=== PATIENT | female | born 1965 | race Caucasian/White ===

== ENCOUNTER 2018-07-23 23:14 | Observation (INO) ==
[2018-07-24] MEDS ORDERED: Naloxone 0.4 MG/ML INJ IVP PRN ×2 (11:15→11:26)
--- NOTE | 2018-07-24 11:26 | Internal Med History&Physical ---
Date of Encounter: 07/24/18 Time of Encounter: 09:40 Internal Medicine - H&P: HPI Chief complaint: s/p fall History of present illness: Ms. Connell is a 53 year old female with a relevant past medical history of HLD, tobacco abuse, migraine headaches, MVP, depression, anxiety, GERD who presented from outside hospital with complaints of fall at home on [place] night after she tripped on something on the floor. She is not consistent on if she lost consciousness, but she stated she do not remember any thing after she tripped. Patient also C/O left chest wall pain since the time of fall. She was evaluated by the ER staff and she was admitted for further evaluation and management Past Med Surg Social Fam HX - Past Medical History Medical history: GERD, migraine, seizures, other Additional medical history: IBS Psychiatric history: anxiety, bipolar, depression - Past Surgical History Surgical History: cholecystectomy, orthopedic, other, other Additional surgical history: OVARIAN CYST REMOVED, RT FOOT SURG - Social History Smoking Status: Former smoker Smokeless Tobacco Status: No Alcohol use: none Drug use: none - Family History Mother Hx Family Cardiac Disorders: Yes (HTN) Internal Medicine - H&P: Meds RX: Benztropine [Cogentin] 1 mg PO HS 02/21/16 [History] RX: Quetiapine Fumarate [Seroquel] 600 mg PO HS 02/21/16 [History] RX: Omeprazole [PriLOSEC] 40 mg PO DAILY 06/28/16 [History] RX: Escitalopram Oxalate 20 mg PO DAILY 12/04/16 [History] RX: Etodolac [Lodine] 400 mg PO TID 12/04/16 [History] RX: Meclizine HCl [Verticalm] 25 mg PO TID PRN 12/04/16 [History] RX: risperiDONE [Risperidone] 2 mg PO BID 12/04/16 [History] RX: Cholecalciferol (Vitamin D3) [Vitamin D3] 2,000 units PO DAILY 07/24/18 [History] RX: Gabapentin [Neurontin] 300 mg PO BID 07/24/18 [History] RX: Montelukast [Singulair] 10 mg PO DAILY 07/24/18 [History] RX: Estrogen,Con/M-Progest Acet [Prempro 0.45-1.5 mg Tablet] 1 tab PO DAILY 07/25/18 [History] RX: Methocarbamol [Robaxin] 500 mg PO BID 07/25/18 [History] RX: Multivit-Min/FA/Lycopen/Lutein [A Thru [employer] Multivit Tab] 1 tab PO DAILY 07/25/18 [History] RX: lamoTRIgine [Lamictal] 25 mg PO QID 07/25/18 [History] RX: clonazePAM [Klonopin] 0.5 mg PO BID tablet 07/26/18 [Rx] Allergy/AdvReac Type Severity Reaction Status Date / Time aspirin [ASA] Allergy Itching Verified 06/12/18 03:52 cephalexin [From Keflex] Allergy Itching Verified 06/12/18 03:52 Cyclobenzaprine Allergy Itching Verified 06/12/18 03:52 [From Flexeril] esomeprazole [From Nexium] Allergy Itching Verified 06/12/18 03:52 sulfamethoxazole Allergy Itching Verified 06/12/18 03:52 [From Bactrim] trimethoprim [From Bactrim] Allergy Itching Verified 06/12/18 03:52 All Systems PM: A 10-system review of systems was performed and is negative for pertinent findings except as documented above in the HPI. - Constitutional Constitutional: no chills, no fever(s), no night sweats - Cardiovascular Cardiovascular ROS IM: no chest pain, no diaphoresis, no dyspnea, no lightheadedness, no palpitations, no syncope - Respiratory Respiratory: no cough, no dyspnea, no wheezing, no excessive phlegm production - Gastrointestinal Gastrointestinal: no abdominal pain, no diarrhea, no hematemesis, no hematochezia, no melena, no nausea, no vomiting - Neurological Neurological ROS: no confusion, no convulsions, no focal weakness, no numbness, no tingling, no tremor(s) - Constitutional Vitals: Temp Pulse Resp BP Pulse Ox 97.9 F 86 18 144/84 90 07/24/18 09:57 07/24/18 09:57 07/24/18 09:57 07/24/18 09:57 07/24/18 09:57 General appearance: Present: A&O X 3 Exam: as below - Head Head exam: Present: atraumatic, normocephalic - Neck Neck exam general surgery: Present: supple, trachea midline. Absent: lymphadenopathy - Respiratory Respiratory exam: Present: CTAB. Absent: accessory muscle use, rales, rhonchi, wheezes - Cardiovascular Cardiovascular exam: Present: RRR, +S1, +S2. Absent: diastolic murmur, gallop, rubs, systolic murmur - GI/Abdominal GI/Abdominal exam: Present: normal bowel sounds, soft, no peritoneal signs. Absent: distended, tenderness - Extremities Exam Extremities exam: Present: warm, radial pulses palpable and symmetrical. Absent: calf tenderness, cyanotic, pedal edema Internal Med - H&P Results - Labs CBC & Chem 7: 07/25/18 00:20 07/25/18 00:20 Labs: Cardiac Enzymes 07/24/18 Range/Units 10:16 Troponin I < 0.03 (< 0.04) ng/mL - Assessment and plan (1) Atypical chest pain Status: Acute Assessment and plan: Chest pain DD *CAD *Muskuloskeletal CP - myofascial strain, costochondritis *GERD *Esophageal spasm PLAN: - cardiac enzymes x 2 q 8 hr - EKG now and in AM - ASA - O2 by NM to keep SpO2 greater than 92% - UA - CBCD, BMP in AM - Fasting lipids - Tylenol 650 mg PO q 4-6 hr PRN headache - Home meds (check list) - 2D Echo - Cardiology consult (2) Syncope Status: Acute Assessment and plan: ASSESSMENT: - Syncope due to Most likely 2/2 being over medicated. the patient has history of seizure disorder DD *vasovagal episode *TIA *Arrhythmia PLAN: - Telemetry - Cardiac enzymes x 2 q 8hr - EKG now and in AM - 2D Echo - Carotid duplex - Neurology consult - Consulting [facility] for medication management, Qualifiers: Syncope type: unspecified Qualified Code(s): R55 - Syncope and collapse (3) Seizure Status: Acute Assessment and plan: We will cont home meds (4) Hyperlipidemia Status: Acute Assessment and plan: Continue home medication and obtain fasting lipid profile in a.m. Qualifiers: Hyperlipidemia type: unspecified Qualified Code(s): E78.5 - Hyperlipidemia, unspecified (5) GERD (gastroesophageal reflux disease) Status: Acute Assessment and plan: Continue PPI Qualifiers: Esophagitis presence: with esophagitis Qualified Code(s): K21.0 - Gastro- esophageal reflux disease with esophagitis (6) Anxiety Status: Acute Assessment and plan: Continue anxiolytics (7) Depression Status: Acute Assessment and plan: Continue antidepressants Qualifiers: Depression Type: unspecified Qualified Code(s): F32.9 - Major depressive disorder, single episode, unspecified (8) MVP (mitral valve prolapse) Status: Acute (9) DVT prophylaxis Status: Acute Assessment and plan: SC heparins - Time Spent With Patient Total time spent is greater than 50% in coordination of care (as documented) at patient's floor/unit and/or counseling patient:
--- NOTE | 2018-07-24 13:05 | Cardiology Consult Note ---
<Cynthia Cleaning - Last Filed: 07/24/18 13:03> Date of Encounter: 07/24/18 Time of Encounter: 12:00 Assessment and Plan (1) Fall Current Visit: Yes Status: Acute Per cardiology: -Reports mechanical fall at home. -Management per primary service. Qualifiers: Encounter type: initial encounter Qualified Code(s): W19.XXXA - Unspecified fall, initial encounter (2) Atypical chest pain Current Visit: Yes Status: Acute Per cardiology: -Chest wall pain reproduceable with palpation after mechanical fall at home. -ECG with SR, T wave abnormalities noted, however no change from baseline. -Troponins negative x2 Faytette, Negative x2 ARM. -Reports [facility] 2008, patient states "no blockages at all." -TTE pending. -Cardiology will sign off. PLease re-consult if significant abnormality on TTE. Discussion w patient/family: The assessment and plan as outlined above was discussed with the patient and/or family members who expressed understanding and agreement. All questions were answered. Thank you for involving us in the care of your patient. Please call with any questions. Discussed and reviewed with Dr.John Scott. History of Present Illness Consult date: 07/24/18 Requesting physician: Anastacia Euceda Consult reason: chest pain Chief complaint: fall History of present illness: Ms. Connell is a 53 year old female with a relevant past medical history of HLD, tobacco abuse, migraine headaches, MVP, depression, anxiety, GERD who presented to [place] with complaints of fall at home. Patient reports medchanical fall after tripping on something on the floor. Denies loss of consciousness. Patient reports left chest wall pain. Reports pain with position change and with palpation. Denies exertional chest pain. Denies shortness of tracy ath or fatigue. Past Med Surg Social Fam HX - Past Medical History Attestation: Yes The following information was validated with the patient. Source: patient, old records reviewed Medical history: GERD, migraine, seizures, other Additional medical history: IBS Psychiatric history: anxiety, bipolar, depression - Past Surgical History Surgical History: cholecystectomy, orthopedic, other, other Additional surgical history: OVARIAN CYST REMOVED, RT FOOT SURG - Social History Smoking Status: Former smoker Smokeless Tobacco Status: No Alcohol use: none Drug use: none - Family History Mother Hx Family Cardiac Disorders: Yes (HTN) Medications and Allergies Benztropine [Cogentin] 1 mg PO HS 02/21/16 [History] Dicyclomine 20 mg PO QID 02/21/16 [History] Quetiapine Fumarate [SEROquel] 600 mg PO HS 02/21/16 [History] RisperiDONE [Risperdal] 3 mg PO HS 02/21/16 [History] Divalproex (12 HR) [Depakote (12 HR)] 500 mg PO DAILY 06/28/16 [History] Omeprazole [PriLOSEC] 40 mg PO BID 06/28/16 [History] Pregabalin [Lyrica] 75 mg PO DAILY 06/28/16 [History] Diclofenac Sodium [Voltaren] 100 gm TP DAILY 12/04/16 [History] Escitalopram Oxalate 20 mg PO DAILY 12/04/16 [History] Etodolac [Lodine] 400 mg PO TID 12/04/16 [History] Meclizine HCl [Verticalm] 25 mg PO TID 12/04/16 [History] Memantine [Namenda] 5 mg PO HS 12/04/16 [History] Ondansetron HCl 4 mg PO Q6HR PRN 12/04/16 [History] Rizatriptan Benzoate [Maxalt Caddymaster] 10 mg PO DAILY PRN 12/04/16 [History] Zolmitriptan [Zomig] 2.5 mg PO DAILY PRN 12/04/16 [History] clonazePAM [Klonopin] 0.5 mg PO TID 12/04/16 [History] risperiDONE [Risperidone] 1 mg PO DAILY 12/04/16 [History] Potassium Chloride 10 meq PO DAILY 2 Days #2 tab.er.prt 06/12/18 [Rx] Allergy/AdvReac Type Severity Reaction Status Date / Time aspirin [ASA] Allergy Itching Verified 06/12/18 03:52 cephalexin [From Keflex] Allergy Itching Verified 06/12/18 03:52 Cyclobenzaprine Allergy Itching Verified 06/12/18 03:52 [From Flexeril] esomeprazole [From Nexium] Allergy Itching Verified 06/12/18 03:52 sulfamethoxazole Allergy Itching Verified 06/12/18 03:52 [From Bactrim] trimethoprim [From Bactrim] Allergy Itching Verified 06/12/18 03:52 All Systems Review: The remainder of the systems were reviewed and are negative - Constitutional Constitutional: other (Fall) - Cardiovascular Cardiovascular: as per HPI Physical Examination Vital Signs, Last 4 Hours Temp Pulse Resp BP Pulse Ox 07/24/18 09:57 97.9 F 86 18 144/84 90 General: Conversant, No Apparent Distress HEENT: Atraumatic, Normocephaly, Mucus Membranes Moist Neck: No JVD, Normal carotid pulses Cardiac: Reg Rate and Rhythm, Normal S1 and S2, No Murmur Lungs: Normal Breath Sounds, No Wheeze, Rales, Rhonchi Neuro: Alert and responsive, No focal deficits noted Abdomen: Soft, Non-Tender Skin: Other (Multiple small scabbed areas. ) Musculoskeletal: Other (Chest pain reproduceable with palpation. ) Extremities: No Clubbing, No Cyanosis, No Edema, Normal Pulses Results Lab Results Active Medications Acetaminophen (Tylenol) 650 mg PO Q6HR PRN PRN Reason: Mild Pain/Fever Stop: 01/23/19 11:27 Naloxone HCl (Narcan) 0.4 mg IVP Q2MIN PRN PRN Reason: SEE COMMENTS Stop: 01/23/19 11:16 Laboratory Tests 07/24/18 07/24/18 10:16 12:25 Troponin I < 0.03 < 0.03 - Imaging and Cardiology Echo: pending - EKG Interpretation EKG results cardiology: personally reviewed (ECG with SR, T wave abnormalities noted, similar to baseline ECG.) Consult Discharge Plan - Plan Referrals: Sheridan Argueta, [employer]ER [Primary Care Provider] - <Chema Scott - Last Filed: 07/24/18 13:18> - Attending Attestation I have personally performed a face to face evaluation on this patient. I have reviewed and agree with the care plan. History and Exam by me shows: Chest pain after fall. Symptoms are flynn noncardiac. Has nonspecific T wave changes which are not new. Assessment and Plan Discussion w patient/family: The assessment and plan as outlined above was discussed with the patient and/or family members who expressed understanding and agreement. All questions were answered. Thank you for involving us in the care of your patient. Please call with any questions. History of Present Illness History of present illness: Ms. Connell is a 53 year old female All Systems Review: The remainder of the systems were reviewed and are negative Physical Examination Vital Signs, Last 4 Hours Temp Pulse Resp BP Pulse Ox 07/24/18 09:57 97.9 F 86 18 144/84 90 Results Lab Results 07/24/18 07/24/18 10:16 12:25 Troponin I < 0.03 < 0.03
[2018-07-24] MEDS: Acetaminophen 325 MG TABLET PO PRN ×2 (13:55→23:14)
[2018-07-24] MEDS: Gabapentin 300 MG CAPSULE PO SCH (21:18)
[2018-07-24] MEDS: lamoTRIgine 25 MG TABLET PO SCH (21:18)
[2018-07-25 01:20] LABS: Basophils # 0.1 K/mcL (0.0-0.2); Basophils % 0.7 %; Eosinophils # 0.2 K/mcL (0.0-0.6); Eosinophils % 2.5 %; Hematocrit 39.8 % (35.3-44.9); Immature Granulocytes % 0.5 % (0-4); Lymphocytes # 2.8 K/mcL (0.6-4.6); Lymphocytes % 34.5 %; Mean Corpuscular HGB Conc 32.7 g/dL (31.6-35.5); Mean Corpuscular Hemoglobin 27.5 pg (28.0-33.3); Mean Corpuscular Volume 84.1 fL (83.0-100.0); Mean Platelet Volume 10.2 fL (9.4-12.4); Monocytes # 0.6 K/mcL (0.0-1.3); Monocytes % 7.3 %; Neutrophils # 4.5 K/mcL (1.6-8.9); Platelet Count 270 K/mcL (140-400); Red Blood Count 4.73 M/mcL (3.82-4.97); Segmented Neutrophils % 54.5 %
[2018-07-25 01:41] LABS: Alanine Aminotransferase 8 Units/L (7-52); Albumin 3.4 g/dL (3.5-5.7); Albumin/Globulin Ratio 1.4 (1.1-2.2); Alkaline Phosphatase 94 Units/L (34-104); Aspartate Amino Transferase 13 Units/L (13-39); BUN/Creatinine Ratio 7 (6-26); Bilirubin,Total 0.3 mg/dL (0.3-1.0); Blood Urea Nitrogen 7 mg/dL (6-20); Calcium 9.2 mg/dL (8.6-10.3); Carbon Dioxide 25 mEq/L (23-29); Chloride 106 mEq/L (98-107); Chol/HDL Ratio 4.3 (0-4.9); Cholesterol 208 mg/dL (< 200); Globulin 2.5 g/dL (2.4-3.5); Glucose 108 mg/dL (70-105); HDL Cholesterol 48 mg/dL (40-59); LDL Cholesterol,Calculated 116 mg/dL (0-99); Magnesium 1.7 mg/dL (1.6-2.6); Osmolality,Calculated 287 (280-300); Phosphorous 2.4 mg/dL (2.7-4.5); Potassium 3.5 mEq/L (3.5-5.1); Sodium 139 mEq/L (136-145); Total Protein 5.9 g/dL (6.4-8.9); Triglycerides 222 mg/dL (< 150); eGFR For Non-African Americans > 60 (> 60)
[2018-07-25] MEDS: *HR* Heparin 5,000 UNIT/ML VIAL SQ SCH ×2 (06:27→17:23)
[2018-07-25] MEDS: Cholecalciferol (D-3) 1,000 UNIT TABLET PO SCH (09:02)
[2018-07-25] MEDS: Gabapentin 300 MG CAPSULE PO SCH ×2 (09:02→21:30)
[2018-07-25] MEDS: lamoTRIgine 25 MG TABLET PO SCH ×2 (09:02→21:30)
--- NOTE | 2018-07-25 12:41 | Neurology - Consult Note ---
Date of Encounter: 07/25/18 Time of Encounter: 08:35 Assessment and Plan (1) Fall Current Visit: Yes Status: Acute Agent was apparently had a fall at home it is not clear that indeed she passed out or not though according to the patient herself she did not lose consciousness though she is not able to recall much after the fall she did not does not remember hitting her head she did have some imaging studies at outside facility due to short-term not available at this time I did not see any focal findings on her current neurological examination in particularly no evidence of any focal motor weakness to be consistent with a stroke neither history is consistent with the seizure. Suggest workup for chest pain questionable syncope. Neurology standpoint patient is a stable Qualifiers: Encounter type: initial encounter Qualified Code(s): W19.XXXA - Unspecified fall, initial encounter (2) Anxiety Current Visit: Yes Status: Acute History of Present Illness HPI: Ms. Connell is a 53 year old female WITH past medical history of HLD, tobacco abuse, migraine headaches, MVP, depression, anxiety, GERD who presented from outside hospital with complaints of fall at home on Wednesday night after she tripped on something on the floor. She is not consistent on if she lost consciousness, but she stated she do not remember any thing after she tripped. Patient also C/O left chest wall pain since the time of fall. She was admitted for further evaluation and management DENISES ANY FOCAL MOTOR WEAKNESS, DENIES any history of a stroke denies any history of seizures Past Med Surg Social Fam HX - Past Medical History Medical history: GERD, migraine, seizures, other Additional medical history: IBS Psychiatric history: anxiety, bipolar, depression - Past Surgical History Surgical History: cholecystectomy, orthopedic, other, other Additional surgical history: OVARIAN CYST REMOVED, RT FOOT SURG - Social History Smoking Status: Former smoker Smokeless Tobacco Status: No Alcohol use: none Drug use: none - Family History Mother Hx Family Cardiac Disorders: Yes (HTN) Medications and Allergies Benztropine [Cogentin] 1 mg PO HS 02/21/16 [History] Quetiapine Fumarate [SEROquel] 600 mg PO HS 02/21/16 [History] Omeprazole [PriLOSEC] 40 mg PO DAILY 06/28/16 [History] Escitalopram Oxalate 20 mg PO DAILY 12/04/16 [History] Etodolac [Lodine] 400 mg PO TID 12/04/16 [History] Meclizine HCl [Verticalm] 25 mg PO TID 12/04/16 [History] clonazePAM [Klonopin] 1 mg PO BID 12/04/16 [History] risperiDONE [Risperidone] 2 mg PO BID 12/04/16 [History] Cholecalciferol (Vitamin D3) [Vitamin D3] 2,000 units PO DAILY 07/24/18 [History] Gabapentin [Neurontin] 300 mg PO BID 07/24/18 [History] Montelukast Sodium 10 mg PO HS 07/24/18 [History] Mmicn-[id number]-[id number] Tablet 07/24/18 [History] Estrogen,Con/M-Progest Acet [Prempro 0.45-1.5 mg Tablet] 1 tab PO DAILY 07/25/18 [History] Methocarbamol [Robaxin] 500 mg PO BID 07/25/18 [History] lamoTRIgine [Lamictal] 25 mg PO QID 07/25/18 [History] Allergy/AdvReac Type Severity Reaction Status Date / Time aspirin [ASA] Allergy Itching Verified 06/12/18 03:52 cephalexin [From Keflex] Allergy Itching Verified 06/12/18 03:52 Cyclobenzaprine Allergy Itching Verified 06/12/18 03:52 [From Flexeril] esomeprazole [From Nexium] Allergy Itching Verified 06/12/18 03:52 sulfamethoxazole Allergy Itching Verified 06/12/18 03:52 [From Bactrim] trimethoprim [From Bactrim] Allergy Itching Verified 06/12/18 03:52 All Systems: The remainder of the systems were reviewed and are negative Physical Examination - Vital Signs Vital Signs: Initial Vital Signs Temp Pulse Resp BP Pulse Ox 97.9 F 86 18 144/84 90 07/24/18 09:57 07/24/18 09:57 07/24/18 09:57 07/24/18 09:57 07/24/18 09:57 - Exam Exam: GENERAL: Comfortable in no acute distress HEENT: Normal LUNGS: CTA HEART: RRR, S1 S2 Audible, no murmur EXTREMITIES: No Pedal edema. DETAILED NEUROLOGICAL EXAMINATION: MENTAL STATUS: Oriented to person, place, date and situation. Memory: knows the President, Aware of recent events Recent Memory Intact Cranial Nerve Examination: CN - II: Visual Acuity, Field of Vision Normal, Fundus examination: No disk edema, Pupils- size shape reaction to light and accommodation: All normal. CN III, IV, : External ocular movements were intact, Pupils were reactive, Nodrooping of the eyelids CN V: Sensation over the face to light touch and pinprick all normal. Corneal reflexes not tested, jaw jerk normal. CN VII: No facial asymmetry, no flattening of nasolabial folds, no difficulty in closing the eyes, no loss of forehead wrinkles, no difficulty in eye-closure, frowning raising eyebrows. CNVIII: No significant hearing loss CN IX, X: Uvula centralized not deviated, Gag reflex: Not tested CN X1: Sternocleidomastoid, trapezius, normal or evidence of any weakness. CN X11: No Dysarthria, no wasting or fibrilation f tongue muscles, no deviation, tongue muscle strength normal. Motor examination: No hypertrophy, tone was normal, power grade 0-5 Upper limbs Proximal- No difficulty in lifting the arms above the head. Distal- No weakness in distal muscles On formal testing 5/5 all over Lower limbs On formal testing 5/5 all over Coordination: [id number] normal. Target pursuit normal finger tapping normal, Rapid alternating moment of wrist normal Sensory system: Superficial sensations- Touch normal. Pain- Pinprick, Temperature all normal, Deep sensation normal, Joint position sense normal. Cortical sensation, Tactile discrimination, localization and extinction all normal. Deep tendon reflexes. Symmetrical bilateral, No evidence of Babinski. No sign of meningeal irritation Gait Examination: Deferred Results - Laboratory Findings CBC and BMP: 07/25/18 00:20 07/25/18 00:20 Abnormal lab findings: Abnormal lab results MCH 27.5 pg (28.0-33.3) L 07/25/18 00:20 Glucose 108 mg/dL (70-105) H 07/25/18 00:20 Phosphorus 2.4 mg/dL (2.7-4.5) L 07/25/18 00:20 Serum Total Protein 5.9 g/dL (6.4-8.9) L 07/25/18 00:20 Albumin 3.4 g/dL (3.5-5.7) L 07/25/18 00:20 Triglycerides 222 mg/dL (< 150) H 07/25/18 00:20 Cholesterol 208 mg/dL (< 200) H 07/25/18 00:20 LDL Cholesterol, Calc 116 mg/dL (0-99) H 07/25/18 00:20 VLDL Cholesterol, Calc 44 mg/dL (< 31) H 07/25/18 00:20 Consult Discharge Plan - Plan Referrals: Sheridan Argueta CNP [Primary Care Provider] - 08/01/18 12:00 pm
--- NOTE | 2018-07-25 15:24 | Internal Med Progress Note ---
Hospitalist Progress Note - Encounter Date of Encounter: 07/25/18 Time of Encounter: 15:22 - Subjective Interval History: No acute changes overnight. Continues to endorse intermittent atypical chest pain. There are inconsistencies to her story regarding syncope however. At times the patient states that she had a loss of consciousness and at other times she denies loss of consciousness. - Exam Vitals: Temp Pulse Resp BP Pulse Ox 97.9 F 82 16 137/82 91 07/25/18 11:48 07/25/18 11:48 07/25/18 11:48 07/25/18 11:48 07/25/18 11:48 Exam: PHYSICAL EXAMINATION: GENERAL: She is alert and oriented to self and place, somewhat disoriented to situation and she displays inconsistencies with her history of present illness. HEENT: Head is normocephalic and atraumatic. Extraocular muscles are intact. Pupils are equal, round, and reactive to light and accommodation. NECK: Supple. No carotid bruits. No lymphadenopathy or thyromegaly. LUNGS: Clear to auscultation AP and L. HEART: Regular rate and rhythm S1, S2 without murmur. ABDOMEN: Soft, nontender, and nondistended. Positive bowel sounds. No hepatosplenomegaly was noted. EXTREMITIES: Without any cyanosis, clubbing, rash, lesions or edema. NEUROLOGIC: Cranial nerves II through XII are grossly intact. PSYCHIATRIC: Appears to be anxious SKIN: Left upper extremity with small partially healing lesions throughout the entire left upper arm. These lesions are in various stages of healing as well as bruising also in various stages of healing. - Assessment and Plan (1) Atypical chest pain Current Visit: Yes Status: Acute Assessment and Plan: Atypical chest pain S/P fall Reproducible with palpation ECG with SR, T-wave abnormalities noted, however no changes from baseline Troponins 4 negative Other events noted on telemetry overnight Reorts [facility] 2008 which was reported as normal TTE pending No history of diabetes, hypertension, HLD, obesity, prior [place]; she is a former smoker Low suspicion for ACS If chest pain persists or worsen consider further workup (2) Syncope Current Visit: Yes Status: Acute Assessment and Plan: Unclear as to whether or not the patient a true syncopal event History of present illness inconsistent as patient has reported at times she had LOC and at other times denies LOC Bilateral carotid Dopplers without stenosis Echocardiogram pending Obtain Ortho Evra vitals DDX includes face of vagal episodes or arrhythmias; history is inconsistent, however which she reports does not appear to be caused by stroke or seizure - Telemetry - Cardiac enzymes x 2 q 8hr - 2D Echo - Carotid duplex - Heparin 5000 U SQ BID or Lovenox 40 mg SQ daily - Consulting [facility] for medication management -Cardiology signed off -Neurology signed off (3) Seizure Current Visit: Yes Status: Acute Assessment and Plan: We will continue home meds (4) Hyperlipidemia Current Visit: Yes Status: Acute (5) GERD (gastroesophageal reflux disease) Current Visit: Yes Status: Acute Assessment and Plan: Continue PPI (6) Anxiety Current Visit: Yes Status: Acute Assessment and Plan: Continue anxiolytics (7) Depression Current Visit: Yes Status: Acute Assessment and Plan: Continue antidepressants (8) DVT prophylaxis Current Visit: Yes Status: Acute Assessment and Plan: SC heparins - Time Spent with Patient Total time spent is greater than 50% in coordination of care (as documented) at patient's floor/unit and/or counseling patient: less than 15 minutes Plan of Care Discussed with: patient Internal Medicine: Result - Labs CBC & Chem 7: 07/25/18 00:20 07/25/18 00:20 Labs: Short CBC 07/25/18 Range/Units 00:20 WBC 8.2 (4.3-11.1) K/mcL Hgb 13.0 (11.5-15.4) g/dL Hct 39.8 (35.3-44.9) % Plt Count 270 (140-400) K/mcL Neutrophils # 4.5 (1.6-8.9) K/mcL BMP 07/25/18 00:20 Sodium 139 Potassium 3.5 Chloride 106 Carbon Dioxide 25 BUN 7 Creatinine 0.94 Glucose 108 H Calcium 9.2 Cardiac Enzymes 07/24/18 07/25/18 Range/Units 17:27 00:20 Troponin I < 0.03 < 0.03 (< 0.04) ng/mL Liver Function 07/25/18 Range/Units 00:20 Total Bilirubin 0.3 (0.3-1.0) mg/dL AST 13 (13-39) Units/L ALT 8 (7-52) Units/L Alkaline Phosphatase 94 (34-104) Units/L Albumin 3.4 L (3.5-5.7) g/dL - Impressions Impressions Echocardiogram 07/25/18 11:24 Impressions: LVEF 50%. Normal LV chamber size, wall thickness and function. Mild left ventricular diastolic dysfunction. Normal right ventricular structure and function. No evidence of pulmonary hypertension. Consult Discharge Plan - Plan Referrals: Sheridan Argueta CNP [Primary Care Provider] - 08/01/18 12:00 pm (4) Hyperlipidemia Qualifiers: Hyperlipidemia type: unspecified Qualified Code(s): E78.5 - Hyperlipidemia, unspecified (5) GERD (gastroesophageal reflux disease) Qualifiers: Esophagitis presence: with esophagitis Qualified Code(s): K21.0 - Gastro- esophageal reflux disease with esophagitis
--- NOTE | 2018-07-25 16:05 | Consult Note ---
Date of Encounter: 07/25/18 Time of Encounter: 16:00 Assessment & Recommendation (1) Bipolar disorder, unspecified Current visit: Yes Status: Acute Qualifiers: Active/Remission status: in remission of unspecified degree Qualified Code(s): F31.70 - Bipolar disorder, currently in remission, most recent episode unspecified History of Present Illness Patient: new to practice Requesting Physician: Jason Prado MD Reason for consult: medication adjustment History of present illness: Ms. Connell is a 53 year old female The patient was admitted after a fall. When I was interviewing the patient she was coming by her who provided additional history. Chief complaint well I did not have a seizure" The patient was in her usual state of health and mood. She was walking on Wednesday night and about 8:00 fell over some car tags. The patient's provided this information. He said that she had passed out for about a minute or more he held her up set her up. And then she eventually came to she did not have any seizure other confusion the patient did not go to the hospital until Wednesday place but most of the time in the local hospital on Wednesday and came here on Wednesday. The patient's history is of concern because she tripped over car ties. But also gave other explanations. The patient has a past psychiatric history. She says she has been going for mental health since she was a child. Her identified her as having psychiatric problems and was able to find additional history. To briefly summarize the patient's been diagnosed with either bipolar disorder and anxiety or PTSD. She is seen by a nurse practitioner named Rosaline rated she is seen on a tele-psychiatry screen out of the local [facility]. The patient also has a field nurse case manager or counselor named Mariano who she saw about 1 month ago. The patient has been on Seroquel Wellbutrin risperidone or street of seizure. She gets all her medicines from the [place] [id number] pharmacy. The patient was past medical history significant for his surgery. She has lost 2 pregnancies. The patient's illnesses are none but the patient sees a headache specialist in [place] named Dr. Yang She has been diagnosed with vertigo what appears to be a tilt test. She is on t he medicine meclizine. Allergies are stated Her previous PCP prescribes other medicines. My history is significant for a mother who had some psychiatric illness her dad was reported as incompetent. 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 The mental status exam the patient has slightly dilated pupils she is sitting quietly. She does not have overt psychotic symptoms. Review of systems the patient reports objects moving in her visual field when she turns her head to the right. Her sends says that she spends a lot of time in bed CC: Jason Prado MD Past Med Surg Social Fam HX - Past Medical History Medical history: GERD, migraine, seizures, other - Past Psychiatric History Psychiatric history: Reports: bipolar, depression Family psychiatric history: Yes Family History of Suicide: Completed - Past Surgical History Surgical History: cholecystectomy, orthopedic, other, other - Social History Smoking Status: Former smoker Smokeless Tobacco Status: No Alcohol use: none Drug use: none Occupational status: disabled Current living situation: Home, With Family Activity Level: Independent ambulation, Mostly sedentary Recent Out of Country Travel Within the Last 8 Weeks: Yes Exposure or Possible Exposure to Illness During Travel: Yes - Family History Mother Hx Family Cardiac Disorders: Yes (HTN) Medications & Allergies Benztropine [Cogentin] 1 mg PO HS 02/21/16 [History] Quetiapine Fumarate [SEROquel] 600 mg PO HS 02/21/16 [History] Omeprazole [PriLOSEC] 40 mg PO DAILY 06/28/16 [History] Escitalopram Oxalate 20 mg PO DAILY 12/04/16 [History] Etodolac [Lodine] 400 mg PO TID 12/04/16 [History] Meclizine HCl [Verticalm] 25 mg PO TID 12/04/16 [History] clonazePAM [Klonopin] 1 mg PO BID 12/04/16 [History] risperiDONE [Risperidone] 2 mg PO BID 12/04/16 [History] Cholecalciferol (Vitamin D3) [Vitamin D3] 2,000 units PO DAILY 07/24/18 [History] Gabapentin [Neurontin] 300 mg PO BID 07/24/18 [History] Montelukast Sodium 10 mg PO HS 07/24/18 [History] Ejffg-Bqkiijb-Jclfpuej Tablet 07/24/18 [History] Estrogen,Con/M-Progest Acet [Prempro 0.45-1.5 mg Tablet] 1 tab PO DAILY 07/25/18 [History] Methocarbamol [Robaxin] 500 mg PO BID 07/25/18 [History] lamoTRIgine [Lamictal] 25 mg PO QID 07/25/18 [History] Allergy/AdvReac Type Severity Reaction Status Date / Time aspirin [ASA] Allergy Itching Verified 06/12/18 03:52 cephalexin [From Keflex] Allergy Itching Verified 06/12/18 03:52 Cyclobenzaprine Allergy Itching Verified 06/12/18 03:52 [From Flexeril] esomeprazole [From Nexium] Allergy Itching Verified 06/12/18 03:52 sulfamethoxazole Allergy Itching Verified 06/12/18 03:52 [From Bactrim] trimethoprim [From Bactrim] Allergy Itching Verified 06/12/18 03:52 Review of Systems Eyes: Reports: other Ears, Nose, Throat: Reports: other Psychiatric: Reports: depression, anxiety Psychiatry Exam - Constitutional Vitals: Temp Pulse Resp BP Pulse Ox 98.0 F 78 16 137/70 96 07/25/18 15:51 07/25/18 15:51 07/25/18 15:51 07/25/18 15:51 07/25/18 15:51 General appearance: age & developmentally appropriate, well-groomed, well- nourished - Musculoskeletal Gait: slow Station: relaxed - Psychiatric Patient Orientation: Yes Person, Yes Time, Yes Place Level of alertness: Alert Behavior: calm, cooperative Psychomotor activity: Slowed Eye Contact: Maintains Eye Contact Mood Description: Euthymic/stable Affect description: congruent with mood, full range, flat Speech Volume: Normal Speech pattern: normal rate, normal rhythm, normal tone, fluent, spontaneous Language & Vocabulary: limited Thought Process: Linear, Goal Oriented Thought Content: No Suicidal ideation, No Homicidal ideation, No Overt delusions Perceptual Disturbances: No Auditory hallucinations, No Visual hallucinations Attention Span Ability: Capable of Focused Attention Memory Description: Grossly Intact Patient Reliability: Questionable Historian Fund of knowledge: Yes abstraction ability, Yes below average, Yes aware of current events Intelligence Estimate: Below Average Judgment: Fair Insight: Partial Results - Labs Labs: Laboratory Last Values WBC 8.2 K/mcL (4.3-11.1) 07/25/18 00:20 RBC 4.73 M/mcL (3.82-4.97) 07/25/18 00:20 Hgb 13.0 g/dL (11.5-15.4) 07/25/18 00:20 Hct 39.8 % (35.3-44.9) 07/25/18 00:20 MCV 84.1 fL (83.0-100.0) 07/25/18 00:20 MCH 27.5 pg (28.0-33.3) L 07/25/18 00:20 MCHC 32.7 g/dL (31.6-35.5) 07/25/18 00:20 RDW 14.0 % (11.5-14.5) 07/25/18 00:20 Plt Count 270 K/mcL (140-400) 07/25/18 00:20 MPV 10.2 fL (9.4-12.4) 07/25/18 00:20 Immature Gran % 0.5 % (0-4) 07/25/18 00:20 Seg Neutrophils % 54.5 % 07/25/18 00:20 Lymphocytes % 34.5 % 07/25/18 00:20 Monocytes % 7.3 % 07/25/18 00:20 Eosinophils % 2.5 % 07/25/18 00:20 Basophils % 0.7 % 07/25/18 00:20 Neutrophils # 4.5 K/mcL (1.6-8.9) 07/25/18 00:20 Lymphocytes # 2.8 K/mcL (0.6-4.6) 07/25/18 00:20 Monocytes # 0.6 K/mcL (0.0-1.3) 07/25/18 00:20 Eosinophils # 0.2 K/mcL (0.0-0.6) 07/25/18 00:20 Basophils # 0.1 K/mcL (0.0-0.2) 07/25/18 00:20 Sodium 139 mEq/L (136-145) 07/25/18 00:20 Potassium 3.5 mEq/L (3.5-5.1) 07/25/18 00:20 Chloride 106 mEq/L (98-107) 07/25/18 00:20 Carbon Dioxide 25 mEq/L (23-29) 07/25/18 00:20 BUN 7 mg/dL (6-20) 07/25/18 00:20 Creatinine 0.94 mg/dL (0.60-1.20) 07/25/18 00:20 Est GFR ( Amer) > 60 (> 60) 07/25/18 00:20 Est GFR (Non-Af Amer) > 60 (> 60) 07/25/18 00:20 BUN/Creatinine Ratio 7 (6-26) 07/25/18 00:20 Glucose 108 mg/dL (70-105) H 07/25/18 00:20 Calculated Osmolality 287 (280-300) 07/25/18 00:20 Calcium 9.2 mg/dL (8.6-10.3) 07/25/18 00:20 Phosphorus 2.4 mg/dL (2.7-4.5) L 07/25/18 00:20 Magnesium 1.7 mg/dL (1.6-2.6) 07/25/18 00:20 Total Bilirubin 0.3 mg/dL (0.3-1.0) 07/25/18 00:20 AST 13 Units/L (13-39) 07/25/18 00:20 ALT 8 Units/L (7-52) 07/25/18 00:20 Alkaline Phosphatase 94 Units/L (34-104) 07/25/18 00:20 Troponin I < 0.03 ng/mL (< 0.04) 07/25/18 00:20 Serum Total Protein 5.9 g/dL (6.4-8.9) L 07/25/18 00:20 Albumin 3.4 g/dL (3.5-5.7) L 07/25/18 00:20 Globulin 2.5 g/dL (2.4-3.5) 07/25/18 00:20 Albumin/Globulin Ratio 1.4 (1.1-2.2) 07/25/18 00:20 Triglycerides 222 mg/dL (< 150) H 07/25/18 00:20 Cholesterol 208 mg/dL (< 200) H 07/25/18 00:20 LDL Cholesterol, Calc 116 mg/dL (0-99) H 07/25/18 00:20 VLDL Cholesterol, Calc 44 mg/dL (< 31) H 07/25/18 00:20 HDL Cholesterol 48 mg/dL (40-59) 07/25/18 00:20 Cholesterol/HDL Ratio 4.3 (0-4.9) 07/25/18 00:20 - Impressions Impressions Echocardiogram 07/25/18 11:24 Impressions: LVEF 50%. Normal LV chamber size, wall thickness and function. Mild left ventricular diastolic dysfunction. Normal right ventricular structure and function. No evidence of pulmonary hypertension. Consult Discharge Plan - Plan Referrals: Sheridan Argueta CNP [Primary Care Provider] - 08/01/18 12:00 pm
[2018-07-25] MEDS: Acetaminophen 325 MG TABLET PO PRN (17:23)
[2018-07-26 00:42] LABS: Amphetamine Screen,Urine Negative ng/mL (Cutoff=1000); Barbiturate Screen,Urine Negative ng/mL (Cutoff=200); Benzodiazepines Screen,Urine Positive ng/mL (Cutoff=300)
[2018-07-26 00:46] LABS: Cannabinoid Screen,Urine Negative ng/mL (Cutoff = 50); Cocaine Screen,Urine Negative ng/mL (Cutoff= 300); Opiate Screen,Urine Negative ng/mL (Cutoff=300); Phencyclidine Screen,Urine Negative ng/mL (Cutoff=25)
[2018-07-26] MEDS: *HR* Heparin 5,000 UNIT/ML VIAL SQ SCH (06:26)
[2018-07-26] MEDS: lamoTRIgine 25 MG TABLET PO SCH (07:25)
[2018-07-26] MEDS: Gabapentin 300 MG CAPSULE PO SCH (07:26)
[2018-07-26] MEDS: Cholecalciferol (D-3) 1,000 UNIT TABLET PO SCH (07:26)
[2018-07-26] MEDS ORDERED: clonazePAM 0.5 MG TABLET PO SCH (13:33)
[2018-07-26 15:17] VITALS: BP 124/83
--- NOTE | 2018-07-26 16:47 | Discharge Summary ---
- NOTES TO OUTPATIENT PROVIDER Notes to Outpatient Provider: Patient presented after experiencing a fall at home was seen by cardiology and neurology. Also seen by psychiatry-concern for polypharmacy-side effects or adverse effects from medications-Risperdal Seroquel Lexapro clonazepam lamotrigine-psychiatry recommending follow-up with local mental health to readjust medications-will reduce clonazepam since she has had frequent falls. Date of Encounter: 07/26/18 Time of Encounter: 16:28 - Discharge Diagnosis (1) Atypical chest pain Priority: Secondary Status: Acute (2) Syncope Priority: Primary Status: Acute Qualifiers: Syncope type: unspecified Qualified Code(s): R55 - Syncope and collapse (3) Seizure Priority: Secondary Status: Acute (4) Hyperlipidemia Priority: Secondary Status: Acute Qualifiers: Hyperlipidemia type: unspecified Qualified Code(s): E78.5 - Hyperlipidemia, unspecified (5) GERD (gastroesophageal reflux disease) Priority: Secondary Status: Acute Qualifiers: Esophagitis presence: with esophagitis Qualified Code(s): K21.0 - Gastro- esophageal reflux disease with esophagitis (6) Anxiety Priority: Secondary Status: Acute (7) Depression Priority: Secondary Status: Acute Qualifiers: Depression Type: unspecified Qualified Code(s): F32.9 - Major depressive disorder, single episode, unspecified Hospital course: Ms. Connell is a 53 year old female Past history of hyperlipidemia tobacco abuse migraine headaches anxiety GERD bipolar disorder exhibited to [facility] emergency department with complaints of fall at home which occurred on Wednesday night after she tripped on something on the floor. Unsure if there was any loss of consciousness. She also complains of left chest wall pain since the time of her fall-denies any motor weakness denies any history of stroke or seizures. CT was completed [facility] which was negative for any acute intracranial abnormalities EKG was sinus rhythm with some T-wave abnormalities noted troponins were negative 4 echo does show EF of 50% normal LV chamber size wall thickness and function mild left ventricular diastolic dysfunction normal right ventricular structure and function no aortic regurgitation or aortic stenosis normal mitral valve structure and function. Patient was seen by cardiology who felt that her chest pain was not cardiac in nature. Patient was also seen by neurology-he fell from a neurological standpoint patient is stable and suggested chest pain workup with questionable syncope. Orthostatics were within normal limits suspicious for polypharmacy psychiatry was consulted and reviewed medications- pharmacy did contact patient's local pharmacy and verified current medication list. This medication list was reviewed with pharmacist as well as psychiatry At this time we will reduce clonazepam since she has had falls. Patient is on Risperdal Seroquel and Lexapro clonazepam and Lamictal- psychiatry concerned she may be experiencing side effects or adverse effects of these medications. Psychiatry recommending the patient follow-up with her local mental health center to readjust her medications.-Currently patient is hemodynamically stable with no chest pain denies any lightheadedness or dizziness has been eating relating in the room without difficulty. I did discuss with the patient concerns about polypharmacy and for her to follow-up with her primary care physician as well as her local mental health center-nurse practitioner Rosaline and to continue counseling with Mariano. advised patient to decrease clonazepam 0.5 twice a day-patient verbalized understanding. Patient will be discharged home - Time Spent with Patient Total time spent providing and/or coordinating discharge services: - Discharge Medications Home Medications: Benztropine [Cogentin] 1 mg PO HS 02/21/16 [History] Quetiapine Fumarate [Seroquel] 600 mg PO HS 02/21/16 [History] Omeprazole [PriLOSEC] 40 mg PO DAILY 06/28/16 [History] Escitalopram Oxalate 20 mg PO DAILY 12/04/16 [History] Etodolac [Lodine] 400 mg PO TID 12/04/16 [History] Meclizine HCl [Verticalm] 25 mg PO TID PRN 12/04/16 [History] risperiDONE [Risperidone] 2 mg PO BID 12/04/16 [History] Cholecalciferol (Vitamin D3) [Vitamin D3] 2,000 units PO DAILY 07/24/18 [History] Gabapentin [Neurontin] 300 mg PO BID 07/24/18 [History] Montelukast [Singulair] 10 mg PO DAILY 07/24/18 [History] Estrogen,Con/M-Progest Acet [Prempro 0.45-1.5 mg Tablet] 1 tab PO DAILY 07/25/18 [History] Methocarbamol [Robaxin] 500 mg PO BID 07/25/18 [History] Multivit-Min/FA/Lycopen/Lutein [A Th[employer] Multivit Tab] 1 tab PO DAILY 07/25/18 [History] lamoTRIgine [Lamictal] 25 mg PO QID 07/25/18 [History] clonazePAM [Klonopin] 0.5 mg PO BID tablet 07/26/18 [Rx] Allergies/Adverse Reactions: Allergy/AdvReac Type Severity Reaction Status Date / Time aspirin [ASA] Allergy Itching Verified 06/12/18 03:52 cephalexin [From Keflex] Allergy Itching Verified 06/12/18 03:52 Cyclobenzaprine Allergy Itching Verified 06/12/18 03:52 [From Flexeril] esomeprazole [From Nexium] Allergy Itching Verified 06/12/18 03:52 sulfamethoxazole Allergy Itching Verified 06/12/18 03:52 [From Bactrim] trimethoprim [From Bactrim] Allergy Itching Verified 06/12/18 03:52 Date of admission: 07/24/18 09:51 Primary care physician: Sheridan Argueta CNP Consults: 07/24/18 10:17 Consult to Cardiology [CONS] Stat Comment: Consulting Provider: Cardiology Yen Reason for Consult: cp Time Notified: 10:17 Call Completed: Yes 07/24/18 18:42 Consult to Neurology [CONS] Routine Consulting Provider: Neurology [facility] Reason for Consult: syncope Time Notified: 18:43 Call Completed: No 07/24/18 18:43 Consult to Psychiatry [CONS] Routine Consulting Provider: Psychiatry Yen Reason consult: Medication recommendation Other reason and/or additional details: medication mangement Discharging clinician: Xochitl Bradford Anticipated date of discharge: 07/26/18 - Constitutional Vitals: Temp Pulse Resp BP Pulse Ox 98.0 F 82 16 124/83 93 07/26/18 15:16 07/26/18 15:16 07/26/18 15:16 07/26/18 15:16 07/26/18 15:16 General appearance: Present: A&O X 3 Exam: PHYSICAL EXAMINATION: GENERAL: She is alert and oriented to self and place, somewhat disoriented to situation and she displays inconsistencies with her history of present illness. HEENT: Head is normocephalic and atraumatic. Extraocular muscles are intact. Pupils are equal, round, and reactive to light and accommodation. NECK: Supple. No carotid bruits. No lymphadenopathy or thyromegaly. LUNGS: Clear to auscultation AP and L. HEART: Regular rate and rhythm S1, S2 without murmur. ABDOMEN: Soft, nontender, and nondistended. Positive bowel sounds. No hepatosplenomegaly was noted. EXTREMITIES: Without any cyanosis, clubbing, rash, lesions or edema. NEUROLOGIC: Cranial nerves II through XII are grossly intact. PSYCHIATRIC: Appears to be anxious SKIN: Left upper extremity with small partially healing lesions throughout the entire left upper arm. These lesions are in various stages of healing as well as bruising also in various stages of healing. - Head Head exam: Present: atraumatic, normocephalic - Eye Eye exam: Present: PERRL, conjuntiva pink, sclera anicteric Pupils: Present: PERRL Additional comments: Pupils are dilated - Neck Neck exam general surgery: Present: supple, trachea midline. Absent: lymphadenopathy - Respiratory Respiratory exam: Present: CTAB. Absent: accessory muscle use, rales, rhonchi, wheezes - Cardiovascular Cardiovascular exam: Present: RRR, +S1, +S2. Absent: diastolic murmur, gallop, rubs, systolic murmur - GI/Abdominal GI/Abdominal exam: Present: normal bowel sounds, soft, no peritoneal signs. Absent: distended, tenderness - Extremities Exam Extremities exam: Present: warm, radial pulses palpable and symmetrical. Absent: calf tenderness, cyanotic, pedal edema - Neurological Exam Neurological exam: Present: CN II-XII intact, oriented X3, no focal deficits. Absent: pronater drift, facial droop, speech deficit - Patient Status Disposition: Home, Self-Care Condition: Good Functional capacity at discharge: independent ambulation Overall status at discharge: patient is back to baseline - Discharge Instructions Instructions: Mitral Valve Prolapse (DC), Chest Pain (DC), Syncope (DC), Bipolar Disorder (DC), Depression (DC), Gastroesophageal Reflux Disease (DC), Anxiety (DC), Fall Prevention (DC), Hyperlipidemia (DC) Follow Up With: Sheridan Argueta CNP [Primary Care Provider] - 08/01/18 12:00 pm - Diet and Activity Activity: increase activity as tolerated Diet: advance to your usual diet
--- NOTE | 2018-07-28 07:59 | Electrocardiograph Report ---
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
== END 2018-07-26 18:19 | disposition home or self-care (01) ==
LOC: 3BNU
PROVIDERS: ADMIT Pediatrics; ATTEND Pediatrics

== ENCOUNTER 2021-04-26 00:11 | Observation (INO) ==
[2021-04-26] MEDS ORDERED: *HR* HYDROcodone/Acet 5/325 mg TABLET PO PRN (05:10)
[2021-04-26] MEDS ORDERED: *HR* Promethazine 25 MG/ML VIAL IM PRN (05:10)
[2021-04-26] MEDS ORDERED: Acetaminophen 325 MG TABLET PO PRN (05:10)
[2021-04-26] MEDS ORDERED: Ondansetron 4 MG/2 ML VIAL IVP PRN (05:10)
[2021-04-26] MEDS ORDERED: Naloxone 0.4 MG/ML INJ IVP PRN (05:10)
[2021-04-26] MEDS ORDERED: Melatonin 3 MG TABLET PO PRN (05:10)
[2021-04-26] MEDS ORDERED: Morphine Sulfate 2 MG/ML SYRINGE IVP ONE (05:23)
[2021-04-26] MEDS: Gabapentin 400 MG CAPSULE PO SCH ×3 (08:42→22:14)
[2021-04-26] MEDS: *HR* OxyCODONE Immed Rel 5 MG TABLET PO PRN ×2 (10:51→18:17)
[2021-04-26 11:03] LABS: Alanine Aminotransferase 12 Units/L (7-52); Albumin 2.7 g/dL (3.5-5.7); Alkaline Phosphatase 131 Units/L (34-104); Aspartate Amino Transferase 20 Units/L (13-39); BUN/Creatinine Ratio 9 (6-26); Bilirubin,Total 0.4 mg/dL (0.3-1.0); Blood Urea Nitrogen 7 mg/dL (6-20); Calcium 8.5 mg/dL (8.6-10.3); Carbon Dioxide 21 mEq/L (23-29); Chloride 106 mEq/L (98-107); Globulin 2.6 g/dL (2.4-3.5); Glucose 73 mg/dL (70-105); Magnesium 1.8 mg/dL (1.6-2.6); Osmolality,Calculated 281 (280-300); Phosphorous 3.1 mg/dL (2.7-4.5); Potassium 3.4 mEq/L (3.5-5.1); Sodium 137 mEq/L (136-145); Thyroid Stimulating Hormone 1.884 mcIU/mL (0.340-5.600); Total Protein 5.3 g/dL (6.4-8.9); eGFR For African Americans > 60 (> 60); eGFR For Non-African Americans > 60 (> 60)
[2021-04-26 15:18] LABS: Basophils # 0.1 K/mcL (0.0-0.2); Basophils % 0.8 %; Eosinophils # 0.2 K/mcL (0.0-0.6); Eosinophils % 1.9 %; Hematocrit 42.9 % (35.3-44.9); Hemoglobin 14.2 g/dL (11.5-15.4); Immature Granulocytes % 0.5 % (0-4); Lymphocytes # 3.9 K/mcL (0.6-4.6); Lymphocytes % 37.7 %; Mean Corpuscular HGB Conc 33.1 g/dL (31.6-35.5); Mean Corpuscular Hemoglobin 29.2 pg (28.0-33.3); Mean Corpuscular Volume 88.3 fL (83.0-100.0); Mean Platelet Volume 10.2 fL (9.4-12.4); Monocytes % 9.8 %; Neutrophils # 5.1 K/mcL (1.6-8.9); Platelet Count 436 K/mcL (140-400); Red Blood Count 4.86 M/mcL (3.82-4.97); Segmented Neutrophils % 49.3 %; White Blood Count 10.3 K/mcL (4.3-11.1)
[2021-04-26 16:32] LABS: Amphetamine Screen,Urine Negative ng/mL (Cutoff=1000); Barbiturate Screen,Urine Positive ng/mL (Cutoff=200); Benzodiazepines Screen,Urine Negative ng/mL (Cutoff=200); Cannabinoid Screen,Urine Negative ng/mL (Cutoff = 50); Cocaine Screen,Urine Negative ng/mL (Cutoff= 300); Opiate Screen,Urine Positive ng/mL (Cutoff=300); Phencyclidine Screen,Urine Negative ng/mL (Cutoff=25)
[2021-04-26] MEDS: Calcium Gluconate 1gm/50mL 1 GM/50 ML BAG IVPB SCH (18:23)
[2021-04-26] MEDS: *HR* Heparin 5,000 UNIT/ML VIAL SQ SCH (18:23)
[2021-04-27] MEDS: *HR* Heparin 5,000 UNIT/ML VIAL SQ SCH (06:26)
[2021-04-27] MEDS: Gabapentin 400 MG CAPSULE PO SCH ×2 (08:07→15:25)
[2021-04-27] MEDS ORDERED: Multivit/Ca/Min/Fe/FA 1 TAB TABLET PO SCH (09:00)
[2021-04-27 09:13] LABS: Basophils # 0.1 K/mcL (0.0-0.2); Basophils % 0.8 %; Eosinophils # 0.3 K/mcL (0.0-0.6); Eosinophils % 2.5 %; Hemoglobin 13.5 g/dL (11.5-15.4); Immature Granulocytes % 0.4 % (0-4); Lymphocytes # 4.8 K/mcL (0.6-4.6); Lymphocytes % 41.1 %; Mean Corpuscular HGB Conc 32.1 g/dL (31.6-35.5); Mean Corpuscular Hemoglobin 28.2 pg (28.0-33.3); Mean Corpuscular Volume 87.9 fL (83.0-100.0); Monocytes # 1.2 K/mcL (0.0-1.3); Monocytes % 10.2 %; Neutrophils # 5.3 K/mcL (1.6-8.9); Platelet Count 317 K/mcL (140-400); Red Blood Count 4.78 M/mcL (3.82-4.97); White Blood Count 11.7 K/mcL (4.3-11.1)
[2021-04-27 09:31] LABS: BUN/Creatinine Ratio 10 (6-26); Blood Urea Nitrogen 7 mg/dL (6-20); C-Reactive Protein 12 mg/L (Less than 10); Calcium 8.9 mg/dL (8.6-10.3); Carbon Dioxide 23 mEq/L (23-29); Chloride 106 mEq/L (98-107); Glucose 84 mg/dL (70-105); Magnesium 1.8 mg/dL (1.6-2.6); Osmolality,Calculated 285 (280-300); Phosphorous 3.8 mg/dL (2.7-4.5); Potassium 4.4 mEq/L (3.5-5.1); Sodium 139 mEq/L (136-145); eGFR For African Americans > 60 (> 60); eGFR For Non-African Americans > 60 (> 60)
[2021-04-27] MEDS: Calcium Gluconate 1gm/50mL 1 GM/50 ML BAG IVPB SCH (15:22)
[2021-04-27 16:16] VITALS: BP 110/72; PULSE 118; TEMP 97.6; O2SAT 96
== END 2021-04-27 17:12 | disposition home or self-care (01) ==
LOC: 3NENU → SUATTDRO 04:21
PROVIDERS: ADMIT Internal Medicine; ATTEND Internal Medicine

== ENCOUNTER 2021-08-19 04:51 | Observation (INO) ==
[2021-08-20] MEDS ORDERED: *HR* HYDROmorphone 2 MG TABLET PO PRN (05:17)
[2021-08-20] MEDS ORDERED: Ondansetron 4 MG/2 ML VIAL IVP PRN (05:27)
[2021-08-20] MEDS ORDERED: Naloxone 0.4 MG/ML INJ IVP PRN (05:27)
[2021-08-20] MEDS ORDERED: Acetaminophen 325 MG TABLET PO PRN (05:27)
[2021-08-20] MEDS ORDERED: Melatonin 3 MG TABLET PO PRN (05:27)
[2021-08-20 06:12] LABS: Hematocrit 37.6 % (35.3-44.9); Hemoglobin 12.3 g/dL (11.5-15.4); Mean Corpuscular HGB Conc 32.7 g/dL (31.6-35.5); Mean Corpuscular Hemoglobin 29.8 pg (28.0-33.3); Mean Platelet Volume 10.7 fL (9.4-12.4); Platelet Count 254 K/mcL (140-400); Red Blood Count 4.13 M/mcL (3.82-4.97); Red Cell Distribution Width 12.3 % (11.5-14.5); White Blood Count 11.9 K/mcL (4.3-11.1)
[2021-08-20 06:19] LABS: INR 1.2; Prothrombin Time 13.1 Seconds (9.4-12.1)
[2021-08-20 06:22] LABS: Activated Partial Thrombo Time 32.9 Seconds (26.0-36.0)
[2021-08-20] MEDS ORDERED: Potassium Chloride Elixir 20 MEQ/15 ML UDC PO ONE ×2 (06:29→12:00)
[2021-08-20 06:36] LABS: BUN/Creatinine Ratio 21 (6-26); Blood Urea Nitrogen 14 mg/dL (6-20); Calcium 9.3 mg/dL (8.6-10.3); Carbon Dioxide 23 mEq/L (23-29); Chloride 108 mEq/L (98-107); Chol/HDL Ratio 3.5 (0-4.9); Cholesterol 168 mg/dL (< 200); Glucose 118 mg/dL (70-105); HDL Cholesterol 48 mg/dL (40-59); LDL Cholesterol,Calculated 99 mg/dL (< 100); Magnesium 1.5 mg/dL (1.6-2.6); Osmolality,Calculated 292 (280-300); Sodium 140 mEq/L (136-145); Triglycerides 104 mg/dL (< 150); Troponin I < 0.03 ng/mL (< 0.04); eGFR For African Americans > 60 (> 60); eGFR For Non-African Americans > 60 (> 60)
[2021-08-20 06:41] LABS: Adenovirus Not Detected (Not Detect); Bordetella Pertussis Not Detected (Not Detect); Chlamydophila pneumoniae Not Detected (Not Detect); Coronavirus 229E Not Detected (Not Detect); Coronavirus HKU1 Not Detected (Not Detect); Coronavirus NL63 Not Detected (Not Detect); Coronavirus OC43 Not Detected (Not Detect); Human Metapneumovirus Not Detected (Not Detect); Human Rhinovirus/Enterovirus Not Detected (Not Detect); Influenza A Subtype 2009 H1 Not Detected (Not Detect); Influenza B Not Detected (Not Detect); Mycoplasma pneumoniae Not Detected (Not Detect); Parainfluenza Virus 1 Not Detected (Not Detect); Parainfluenza Virus 2 Not Detected (Not Detect); Parainfluenza Virus 3 Not Detected (Not Detect); Parainfluenza Virus 4 Not Detected (Not Detect); Respiratory Syncytial Virus Not Detected (Not Detect); SARS-CoV-2 Not Detected (Not Detect)
[2021-08-20 07:32] LABS: Estimated Average Glucose 91 mg/dl; Hemoglobin A1C 4.8 %
[2021-08-20] MEDS: Multivit/Ca/Min/Fe/FA 1 TAB TABLET PO SCH (07:52)
[2021-08-20] MEDS: Magnesium Oxide 400 MG TABLET PO SCH ×2 (07:52→20:16)
[2021-08-20] MEDS: FLUoxetine 20 MG CAPSULE PO SCH (07:52)
[2021-08-20] MEDS: clonazePAM 0.5 MG TABLET PO SCH ×2 (07:53→20:16)
[2021-08-20] MEDS: 0.9 % Sodium Chloride 1,000 ML IVC SCH (08:18)
[2021-08-20] MEDS: tiZANidine 4 MG TABLET PO PRN ×2 (08:18→21:21)
[2021-08-20 08:37] LABS: Bilirubin,Urine Negative (Negative); Blood,Urine Trace (Negative); Calcium Oxalate Crystals,Urine Present per hpf; Clarity,Urine Clear (Clear); Color,Urine Yellow (Yellow); Glucose,Urine (UA) Normal (Normal); Hyaline Casts,Urine Few per lpf (None Seen); Ketones,Urine Negative (Negative); Leukocyte Esterase,Urine Negative (Negative); Mucus,Urine Many per lpf (None-Few); Nitrite,Urine Negative (Negative); Protein,Urine 30 mg/dL (Neg-Trace); Specific Gravity,Urine 1.028 (1.010-1.025); Squamous Epithelial Cell,Urine Few per hpf (None-Few); Urobilinogen,Urine Normal (Normal)
[2021-08-20] MEDS ORDERED: *HR* HYDROmorphone (PF) 1 MG/ML SYRINGE IVP ONE (11:45)
[2021-08-20] MEDS: *HR* HYDROmorphone (PF) 1 MG/ML SYRINGE IVP PRN ×2 (16:41→21:21)
[2021-08-20] MEDS: Ondansetron 4 MG/2 ML VIAL IVP PRN (20:19)
[2021-08-20] MEDS: Acetaminophen IV 1,000 MG/100 ML BAG IVPB SCH (20:29)
[2021-08-21] MEDS: Acetaminophen IV 1,000 MG/100 ML BAG IVPB SCH ×3 (00:40→11:39)
[2021-08-21] MEDS: 0.9 % Sodium Chloride 1,000 ML IVC SCH (03:49)
[2021-08-21] MEDS: Ondansetron 4 MG/2 ML VIAL IVP PRN ×2 (04:13→14:58)
[2021-08-21 05:33] LABS: Hematocrit 32.8 % (35.3-44.9); Mean Corpuscular HGB Conc 31.7 g/dL (31.6-35.5); Mean Corpuscular Hemoglobin 29.7 pg (28.0-33.3); Mean Corpuscular Volume 93.7 fL (83.0-100.0); Mean Platelet Volume 10.9 fL (9.4-12.4); Platelet Count 184 K/mcL (140-400); Red Cell Distribution Width 12.6 % (11.5-14.5); White Blood Count 6.7 K/mcL (4.3-11.1)
[2021-08-21 05:34] LABS: Hemoglobin 10.4 g/dL (11.5-15.4)
[2021-08-21 05:46] LABS: BUN/Creatinine Ratio 13 (6-26); Blood Urea Nitrogen 11 mg/dL (6-20); Calcium 8.9 mg/dL (8.6-10.3); Carbon Dioxide 29 mEq/L (23-29); Chloride 108 mEq/L (98-107); Glucose 109 mg/dL (70-105); Osmolality,Calculated 292 (280-300); Potassium 3.5 mEq/L (3.5-5.1); Sodium 141 mEq/L (136-145); eGFR For African Americans > 60 (> 60); eGFR For Non-African Americans > 60 (> 60)
[2021-08-21] MEDS: clonazePAM 0.5 MG TABLET PO SCH (08:53)
[2021-08-21] MEDS: Multivit/Ca/Min/Fe/FA 1 TAB TABLET PO SCH (08:53)
[2021-08-21] MEDS: FLUoxetine 20 MG CAPSULE PO SCH (08:53)
[2021-08-21 15:08] VITALS: BP 132/67; PULSE 81; TEMP 98.1; O2SAT 95
== END 2021-08-21 16:15 ==
LOC: 4WAOSI → INTOOBSV 08-20 04:52 → SUATTDRO 08-20 04:52
PROVIDERS: ADMIT Internal Medicine; ATTEND General Practice